=== PATIENT | male | born 1935 | race Caucasian/White ===

== ENCOUNTER 2017-01-09 16:01 | Emergency (ER) | payer MEDICARE, OTHER ==
[~2017-01-09] VITALS: Ht 177.8 cm; Wt 86.4 kg
[~2017-01-09 16:01] MED LIST: ASPIR-LOW81 MG PO; CARDI-OMEGA1000 MG PO; CARTIA XT180 MG PO; DIGOXIN0.25 MG PO; DUO-KAPS1 CAP PO; FISH OIL CONC1000 MG PO; FISH OIL CONCEN1 SG2 PO; FLEXERIL 1010 MG/TAB PO; HCTZ 25MG TAB25 MG PO; LISINOPRIL20 MG PO; MAGNESIUM PO; MILK OF MA400 MG/51 PO; MULTIPLE VITAMI1 CAP PO; MVI; NITROSTAT0.4 MG/TAB SL; NORCO 325 MG-51 TAB PO; OMNICEF 300MG300 MG PO; OSCAL 500 TAB500 MG PO; OSCAL 500MG/VI500 MG PO; PRINIVIL40 MG PO; TOPROL XL 25MG25 MG PO; TOPROL XL50 MG PO; WARFARIN SODIU7.5 MG PO; ZESTRIL 20MG TA20 MG PO; [UNRECOGNIZED DRUG - OTHER] PO
[2017-01-09 16:03] VITALS: TEMP 98.6
[2017-01-09] MEDS ORDERED: TOPROL XL 25MG25 MG PO (16:14)
[2017-01-09 16:37] LABS: BASO % 0.5 % (0.0-2.0); EOS # 0.2 (0.0-0.7); EOS % 1.9 % (0-4.0); GRAN # 5.8 (1.4-6.5); GRAN % 70.2 % (42.2-75.2); HEMATOCRIT 42.3 % (42.0-52.0); HEMOGLOBIN 14.1 g/dl (13.5-18.0); LYMPH # 1.6 (1.2-3.4); LYMPH % 19.9 % (20.0-51.0); MEAN CELL VOLUME 87 fl (80.0-100.0); MEAN CORPUSCULAR HEMOGLOBIN 29 pg (27.0-31.0); MEAN CORPUSCULAR HGB CONC 33 g/dl (33.0-37.0); MEAN PLATELET VOLUME 10.1 fl (7.4-10.4); MONO # 0.6 (0.1-0.6); MONO % 7.3 % (1.7-9.3); PLATELET COUNT 148 K/mm3 (130-400); RED BLOOD COUNT 4.85 M/mm3 (4.20-5.60); REDCELL DISTRIBUTION WIDTH-CV 13.4 % (11.5-14.5); WHITE BLOOD COUNT 8.2 K/mm3 (4.8-10.8)
[2017-01-09 16:42] LABS: PROTHROMBIN TIME 11.3 SECONDS (9.7-12.8)
[2017-01-09 16:45] LABS: PARTIAL THROMBOPLASTIN TIME 31.8 SECONDS (26.0-37.0)
[2017-01-09 16:52] LABS: ADJUSTED CALCIUM 9.4 mg/dL (8.4-10.2); ALANINE AMINOTRANSFERASE 29 U/L (21-72); ALBUMIN 4.2 gm/dL (3.5-5.0); ALKALINE PHOSPHATASE 78 U/L (50-136); ANION GAP 12 mmol/L (7-16); BILIRUBIN,TOTAL 0.9 mg/dL (0.0-1.0); BLOOD UREA NITROGEN 14 mg/dL (9-20); CALCIUM 9.6 mg/dL (8.4-10.2); CARBON DIOXIDE 20 mmol/L (22-30); CHLORIDE 105 mmol/L (98-107); CREATININE, serum 0.92 mg/dL (0.66-1.25); GLUCOSE 99 mg/dL (74-106); POTASSIUM 4.1 mmol/L (3.4-5.0); SODIUM 137 mmol/L (137-145); TOTAL PROTEIN 7.3 gm/dL (6.4-8.2)
[2017-01-09 17:12] LABS: TROPONIN-I < 0.012 ng/mL (0.000-0.034)
[2017-01-09 17:56] VITALS: BP 124/81; PULSE 72
[2017-01-10] MEDS ORDERED: ASPIRIN 81M81 MG/TA2 PO (22:38)
== END 2017-01-09 18:00 | disposition home or self-care (01) ==
LOC: COL.ER 16:01
PROVIDERS: Emergency Medicine
DX: I48.91 Unspecified atrial fibrillation (principal); I10 Essential (primary) hypertension; Z85.46 Personal history of malignant neoplasm of prostate; Z95.0 Presence of cardiac pacemaker

== ENCOUNTER 2017-01-10 22:10 | Emergency (ER) | payer MEDICARE, OTHER ==
[~2017-01-10] VITALS: Ht 154.9 cm; Wt 86.4 kg
[2017-01-10 22:10] VITALS: BP 130/78; PULSE 136; TEMP 98.6
[2017-01-10 22:30] LABS: BASO % 0.4 % (0.0-2.0); EOS # 0.5 (0.0-0.7); EOS % 6.3 % (0-4.0); GRAN # 4.3 (1.4-6.5); GRAN % 54.4 % (42.2-75.2); HEMATOCRIT 42.6 % (42.0-52.0); HEMOGLOBIN 14.3 g/dl (13.5-18.0); LYMPH # 2.5 (1.2-3.4); LYMPH % 31.3 % (20.0-51.0); MEAN CELL VOLUME 88 fl (80.0-100.0); MEAN CORPUSCULAR HEMOGLOBIN 30 pg (27.0-31.0); MEAN CORPUSCULAR HGB CONC 34 g/dl (33.0-37.0); MEAN PLATELET VOLUME 10.1 fl (7.4-10.4); MONO # 0.6 (0.1-0.6); MONO % 7.5 % (1.7-9.3); PLATELET COUNT 160 K/mm3 (130-400); RED BLOOD COUNT 4.82 M/mm3 (4.20-5.60); REDCELL DISTRIBUTION WIDTH-CV 13.5 % (11.5-14.5)
[2017-01-10] MEDS ORDERED: ASPIRIN 81M81 MG/TA2 PO (22:38)
[2017-01-10 22:53] LABS: ADJUSTED CALCIUM 9.2 mg/dL (8.4-10.2); ALANINE AMINOTRANSFERASE 27 U/L (21-72); ALBUMIN 4.2 gm/dL (3.5-5.0); ALKALINE PHOSPHATASE 79 U/L (50-136); ANION GAP 11 mmol/L (7-16); BILIRUBIN,TOTAL 0.6 mg/dL (0.0-1.0); BLOOD UREA NITROGEN 18 mg/dL (9-20); CALCIUM 9.4 mg/dL (8.4-10.2); CARBON DIOXIDE 23 mmol/L (22-30); CHLORIDE 103 mmol/L (98-107); CREATININE, serum 1.05 mg/dL (0.66-1.25); GLUCOSE 129 mg/dL (74-106); MAGNESIUM 1.9 mg/dL (1.6-2.3); PHOSPHOROUS 3.3 mg/dL (2.5-4.5); POTASSIUM 4.1 mmol/L (3.4-5.0); SODIUM 137 mmol/L (137-145); TOTAL PROTEIN 7.3 gm/dL (6.4-8.2)
[2017-01-10 23:22] LABS: TROPONIN-I < 0.012 ng/mL (0.000-0.034)
[2017-01-11] MEDS ORDERED: CARDIZEM 30MG T30 MG PO (00:32)
[2017-01-12] MEDS ORDERED: CARDIZEM 30MG T30 MG PO (14:06)
[2017-01-12] MEDS ORDERED: PACERONE400 MG PO (16:50)
== END 2017-01-11 01:16 | disposition home or self-care (01) ==
LOC: COL.ER 22:10
PROVIDERS: Emergency Medicine
DX: I48.92 Unspecified atrial flutter (principal); I48.91 Unspecified atrial fibrillation; I10 Essential (primary) hypertension; Z85.46 Personal history of malignant neoplasm of prostate; Z86.79 Personal history of other diseases of the circulatory system; Z95.0 Presence of cardiac pacemaker; Z79.82 Long term (current) use of aspirin

== ENCOUNTER 2017-01-12 13:06 | Day surgery (SDC) | payer MEDICARE, OTHER ==
[~2017-01-12] VITALS: Ht 180.3 cm; Wt 88.6 kg
[2017-01-12] VITALS (8 sets, daily range): BP systolic 122–134; BP diastolic 76–102; PULSE 60–137; TEMP 98.7
[~2017-01-12 13:06] MED LIST changes: +ASPIRIN 81M81 MG/TA2 PO; +CARDIZEM 30MG T30 MG PO
[2017-01-12 13:50] LABS: INR 1.1 (0.8-3.0); PROTHROMBIN TIME 12.1 SECONDS (9.7-12.8)
[2017-01-12 13:51] LABS: POTASSIUM 4.1 mmol/L (3.4-5.0)
[2017-01-12] MEDS ORDERED: CARDIZEM 30MG T30 MG PO (14:06)
[2017-01-12 14:26] LABS: THYROID STIMULATING HORMONE 1.43 uIU/mL (0.465-4.680)
[2017-01-12] MEDS ORDERED: PACERONE400 MG PO (16:50)
== END 2017-01-12 17:43 | disposition home or self-care (01) ==
LOC: COL.CAR 13:06
PROVIDERS: Internal Medicine Interventional Cardiology
DX: I48.92 Unspecified atrial flutter (principal); I48.0 Paroxysmal atrial fibrillation; I10 Essential (primary) hypertension; I73.9 Peripheral vascular disease, unspecified; Z95.0 Presence of cardiac pacemaker; Z85.46 Personal history of malignant neoplasm of prostate; Z87.19 Personal history of other diseases of the digestive system; Z87.891 Personal history of nicotine dependence; Z86.79 Personal history of other diseases of the circulatory system
CPT/HCPCS: J0282; J2250; J3010; J7030

== ENCOUNTER 2019-02-01 09:54 | Emergency (ER) | payer MEDICARE, OTHER ==
[~2019-02-01] VITALS: Ht 180.3 cm; Wt 87.7 kg
[~2019-02-01 09:54] MED LIST changes: +BETAPACE 80MG80 MG PO; +CALCIUM 600MG+D1 TAB PO; +CEROVITE SENIOR1 TA1 PO; +PACERONE400 MG PO; +PRINIVIL20 MG PO
[2019-02-01 10:03] VITALS: BP 137/60; TEMP 97.7
[2019-02-01 11:20] LABS: BASO % 0.5 % (0.0-2.0); EOS # 0.4 (0.0-0.7); EOS % 5.2 % (0-4.0); GRAN # 4.9 (1.4-6.5); GRAN % 61.3 % (42.2-75.2); HEMATOCRIT 42.4 % (42.0-52.0); HEMOGLOBIN 14.3 g/dl (13.5-18.0); LYMPH # 1.9 (1.2-3.4); MEAN CELL VOLUME 88 fl (80.0-100.0); MEAN CORPUSCULAR HEMOGLOBIN 30 pg (27.0-31.0); MEAN CORPUSCULAR HGB CONC 34 g/dl (33.0-37.0); MEAN PLATELET VOLUME 10.3 fl (7.4-10.4); MONO # 0.7 (0.1-0.6); MONO % 8.6 % (1.7-9.3); PLATELET COUNT 147 K/mm3 (130-400); RED BLOOD COUNT 4.84 M/mm3 (4.20-5.60); REDCELL DISTRIBUTION WIDTH-CV 13.5 % (11.5-14.5)
[2019-02-01 11:22] LABS: INR 1.1 (0.8-3.0); PROTHROMBIN TIME 12.9 SECONDS (9.7-12.8)
[2019-02-01 11:26] LABS: ALANINE AMINOTRANSFERASE 18 U/L (21-72); ALBUMIN 4.2 gm/dL (3.5-5.0); ALKALINE PHOSPHATASE 70 U/L (50-136); ANION GAP 10 mmol/L (7-16); AST,SGOT 23 U/L (15-37); BILIRUBIN,TOTAL 0.9 mg/dL (0.0-1.0); BLOOD UREA NITROGEN 14 mg/dL (9-20); CALCIUM 9.3 mg/dL (8.4-10.2); CARBON DIOXIDE 24 mmol/L (22-30); CHLORIDE 105 mmol/L (98-107); CREATININE, serum 0.83 (0.66-1.25); GLUCOSE 93 mg/dL (74-106); SODIUM 139 mmol/L (137-145); TOTAL PROTEIN 7.3 gm/dL (6.4-8.2)
[2019-02-01 11:39] LABS: TROPONIN-I < 0.012 ng/mL (0.000-0.035)
[2019-02-01 12:16] LABS: COLLECTION METHOD CLEAN CATCH
[2019-02-01 12:22] LABS: PH 6 (5-8); SQUAMOUS EPITHELIAL 0-2 /hpf; URINE APPEARANCE Clear; URINE BACTERIA None Seen /hpf; URINE BILIRUBIN Negative (NEGATIVE); URINE BLOOD Negative (NEGATIVE); URINE COLOR Yellow; URINE GLUCOSE Negative (NEGATIVE); URINE KETONE Trace (NEGATIVE); URINE LEUKOCYTE ESTERASE Negative (NEGATIVE); URINE NITRATE Negative (NEGATIVE); URINE PROTEIN(semi-quant) Negative (NEGATIVE); URINE RBC 0-2 /hpf; URINE UROBILINOGEN Negative (NEGATIVE)
[2019-02-01] MEDS ORDERED: ANTIVERT 25MG25 MG PO (13:41)
[2019-02-01 14:09] VITALS: PULSE 67
== END 2019-02-01 14:09 | disposition home or self-care (01) ==
LOC: COL.ER 09:54
PROVIDERS: Emergency Medicine
DX: R42 Dizziness and giddiness (principal); I48.91 Unspecified atrial fibrillation; I10 Essential (primary) hypertension; Z86.69 Personal history of other diseases of the nervous system and sense organs; Z98.890 Other specified postprocedural states; Z79.82 Long term (current) use of aspirin
CPT/HCPCS: J1200; J2060; J2405; J7030

== ENCOUNTER 2020-12-08 16:12 | Inpatient (IN) | payer MEDICARE, OTHER ==
[~2020-12-08] VITALS: Ht 177.8 cm; Wt 88.6 kg
[~2020-12-08 16:12] MED LIST changes: +ANTIVERT 25MG25 MG PO; +TIKOSYN0.5 MG PO
[2020-12-08 16:34] LABS: BASO % 0.4 % (0.0-2.0); EOS # 0.4 (0.0-0.7); EOS % 3.7 % (0-4.0); GRAN # 6.8 (1.4-6.5); GRAN % 68.8 % (42.2-75.2); HEMATOCRIT 43.4 % (42.0-52.0); LYMPH % 20.2 % (20.0-51.0); MEAN CELL VOLUME 88 fl (80.0-100.0); MEAN CORPUSCULAR HEMOGLOBIN 29 pg (27.0-31.0); MEAN CORPUSCULAR HGB CONC 32 g/dl (33.0-37.0); MEAN PLATELET VOLUME 9.5 fl (7.4-10.4); MONO # 0.7 (0.1-0.6); MONO % 6.7 % (1.7-9.3); PLATELET COUNT 180 K/mm3 (130-400); RED BLOOD COUNT 4.92 M/mm3 (4.20-5.60); REDCELL DISTRIBUTION WIDTH-CV 13.7 % (11.5-14.5)
[2020-12-08 16:47] LABS: ALBUMIN 4.4 gm/dL (3.5-5.0); BILIRUBIN,TOTAL 0.4 mg/dL (0.0-1.0); C-REACTIVE PROTEIN 0.6 mg/dL (0.0-0.9); CALCIUM 9.7 mg/dL (8.4-10.2); CREATININE, serum 1.02 (0.66-1.25); POTASSIUM 4.3 mmol/L (3.4-5.0); TOTAL PROTEIN 7.7 gm/dL (6.4-8.2)
--- NOTE | 2020-12-08 23:07 | NUR ---
PT ARRIVED ON UNIT AT 2230. PT ORIENTED TO ROOM. PT COMPLAINS OF CONSTANT PAIN IN HIS ABDOMINAL AREA. PT RESTING IN BED BUT CANT GET COMFORTABLE. BOWEL SOUNDS HYPOACTIVE IN ALL FOUR QUADRANTS. LR RUNNING THROUGH IV. CALL LIGHT WITHIN REACH. WILL CONTINUE TO MONITOR.
[2020-12-08 23:57] VITALS: BP 143/68; PULSE 80; TEMP 98.7
--- NOTE | 2020-12-09 00:13 | NUR ---
ED NURSE REPORTED SEVERAL ATEMPTS TO PLACE NG TUBE WERE UNSUCESSFUL. WILL MONITOR PT AND CONTACT PHYSICIAN IF NEEDED.
[2020-12-09 03:37] VITALS: BP 152/55; PULSE 75; TEMP 98.2
--- NOTE | 2020-12-09 06:04 | NUR ---
WALKED PAST PT ROOM AND HEARD HIM VOMITING. WALKED IN AND FOUND EMESIS IN THE BEDSIDE TUB. THE BOTTOM WAS FULL WITH WATERY BROWN EMESIS. ZOFRAN WAS GIVEN PER PROTOCOL. HE HAS STOPPED VOMITING. WILL CONTINUE TO MONITOR.
--- NOTE | 2020-12-09 07:00 | NUR ---
Report with BEE Rivera and BEE Villegas. Pt resting in bed with eyes closed, resp even and unlabored. IVF's infusing to left forearm site without s/s of complications. Call light in reach.
[2020-12-09 07:43] VITALS: BP 162/49; PULSE 73; TEMP 99.5
[2020-12-09 08:22] LABS: HEMATOCRIT 44.4 % (42.0-52.0); HEMOGLOBIN 14.6 g/dl (13.5-18.0); MEAN CELL VOLUME 88 fl (80.0-100.0); MEAN CORPUSCULAR HEMOGLOBIN 29 pg (27.0-31.0); MEAN CORPUSCULAR HGB CONC 33 g/dl (33.0-37.0); MEAN PLATELET VOLUME 10.2 fl (7.4-10.4); PLATELET COUNT 183 K/mm3 (130-400); RED BLOOD COUNT 5.07 M/mm3 (4.20-5.60); REDCELL DISTRIBUTION WIDTH-CV 13.8 % (11.5-14.5)
[2020-12-09 08:29] LABS: ALBUMIN 3.9 gm/dL (3.5-5.0); BILIRUBIN,TOTAL 0.7 mg/dL (0.0-1.0); CALCIUM 9.2 mg/dL (8.4-10.2); CREATININE, serum 0.94 (0.66-1.25); POTASSIUM 4.4 mmol/L (3.4-5.0); TOTAL PROTEIN 6.9 gm/dL (6.4-8.2)
[2020-12-09 09:12] LABS: BAND 1 % (0-10); LYMPHOCYTE 5 % (20.0-51.0); NEUTROPHILS 91 % (42.0-75.2); PLATELET ESTIMATE NORMAL (NORMAL)
[2020-12-09 09:55] LABS: COLLECTION METHOD CLEAN CATCH
--- NOTE | 2020-12-09 10:07 | NUR ---
Initial visit; Patient and his thanked Cadd Operator for looking in on him and offering God's blessings.
[2020-12-09 10:34] LABS: MUCOUS Present /lpf; PH 7 (5-8); SQUAMOUS EPITHELIAL None Seen /hpf; URINE APPEARANCE Clear; URINE BACTERIA None Seen /hpf; URINE BILIRUBIN Negative (NEGATIVE); URINE BLOOD Negative (NEGATIVE); URINE COLOR Yellow; URINE GLUCOSE Negative (NEGATIVE); URINE KETONE 1+ (NEGATIVE); URINE LEUKOCYTE ESTERASE Negative (NEGATIVE); URINE NITRATE Negative (NEGATIVE); URINE PROTEIN(semi-quant) Negative (NEGATIVE); URINE RBC 0-2 /hpf; URINE UROBILINOGEN Negative (NEGATIVE)
[2020-12-09 11:40] VITALS: BP 131/51; PULSE 76; TEMP 98.6
--- NOTE | 2020-12-09 14:59 | NUR ---
SW met with the patient to discuss discharge plan. The patient lives in [place] with his , Carmelita (ph#[phone]). 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 The patient's PCP is Dr. Juanito Hwang and he receives his medications from [facility]. He reports no difficulties obtaining his meds. The patient's DPOA-HC is in EMR and it designates his . The patient plans to return home with his upon discharge. No additional needs at this time. *Discharge plan: home with *
[2020-12-09 15:58] VITALS: BP 127/54; PULSE 74; TEMP 98.7
--- NOTE | 2020-12-09 18:50 | NUR ---
Provider notified of pt's recent episode of emesis and decreased urine output - pt has not voided since this morning with IVF's infusing at 125 ml/hr. Orders received. IV pump set to run 500 ml bolus of current LR over 2 hours. When in room, pt does void 750 ml urine without difficulty. Report to BEE Larry. No further needs reported. Call light in reach.
--- NOTE | 2020-12-09 19:22 | NUR ---
Initial shift assessment done- states abd pain is only slight 'sore' denies need for pain meds- denies nausea. Abd soft, hypoactive bowel sounds, no flatus-- NPO with ice chips. Will take a walk tonight with assist.
[2020-12-09 19:29] VITALS: BP 146/66; PULSE 76; TEMP 97.6
[2020-12-09 23:42] VITALS: BP 149/62; PULSE 86; TEMP 98.6
[2020-12-10 03:58] VITALS: BP 139/64; PULSE 82; TEMP 97.9
--- NOTE | 2020-12-10 05:01 | NUR ---
Has been sleeping well since Morphine was given earlier- one emesis tonight of about 100cc,, denies need for Zofran at this time.VSS.
[2020-12-10 07:10] LABS: BASO % 0.2 % (0.0-2.0); GRAN # 7.3 (1.4-6.5); GRAN % 78.6 % (42.2-75.2); HEMATOCRIT 42.5 % (42.0-52.0); HEMOGLOBIN 13.9 g/dl (13.5-18.0); LYMPH # 1.2 (1.2-3.4); LYMPH % 12.7 % (20.0-51.0); MEAN CELL VOLUME 88 fl (80.0-100.0); MEAN CORPUSCULAR HEMOGLOBIN 29 pg (27.0-31.0); MEAN CORPUSCULAR HGB CONC 33 g/dl (33.0-37.0); MEAN PLATELET VOLUME 10.2 fl (7.4-10.4); MONO # 0.8 (0.1-0.6); MONO % 8.2 % (1.7-9.3); PLATELET COUNT 173 K/mm3 (130-400); RED BLOOD COUNT 4.83 M/mm3 (4.20-5.60); REDCELL DISTRIBUTION WIDTH-CV 13.8 % (11.5-14.5)
[2020-12-10 07:22] LABS: ALBUMIN 3.5 gm/dL (3.5-5.0); BILIRUBIN,TOTAL 0.6 mg/dL (0.0-1.0); CALCIUM 8.6 mg/dL (8.4-10.2); CREATININE, serum 0.9 (0.66-1.25); POTASSIUM 4.2 mmol/L (3.4-5.0); TOTAL PROTEIN 6.2 gm/dL (6.4-8.2)
[2020-12-10 08:15] VITALS: BP 166/84; PULSE 111; TEMP 99.1
--- NOTE | 2020-12-10 10:41 | NUR ---
Assessment completed, alert/oriented, vital signs stable/ low grade temps, abdomen is distended and BS are hypoactive, patient reports he is still nauseated and denies passing and flatus, heart RRR/ he has taken his tikoysn and will monitor that he is able to keep his meds down, has been by and and is likely planning on taking patient to OR later today as patient is not showing any improvement in his condition, patient is agreeable and understands plan of care
--- NOTE | 2020-12-10 10:46 | NUR ---
Follow-up visit; Patient and his thanked Computational Biologist for continuing to look in on him. Patient continues to be in considerable pain. Computational Biologist attempts to comfort and reassure him of God's presence.
[2020-12-10 11:57] VITALS: BP 143/87; PULSE 97; TEMP 99.4
[2020-12-10 16:30] LABS: HEMATOCRIT 43.1 % (42.0-52.0); HEMOGLOBIN 14.7 g/dl (13.5-18.0); MEAN CELL VOLUME 86 fl (80.0-100.0); MEAN CORPUSCULAR HEMOGLOBIN 29 pg (27.0-31.0); MEAN CORPUSCULAR HGB CONC 34 g/dl (33.0-37.0); MEAN PLATELET VOLUME 9.7 fl (7.4-10.4); PLATELET COUNT 156 K/mm3 (130-400); RED BLOOD COUNT 5.02 M/mm3 (4.20-5.60); REDCELL DISTRIBUTION WIDTH-CV 13.6 % (11.5-14.5)
[2020-12-10 16:36] LABS: ALBUMIN 3.6 gm/dL (3.5-5.0); BILIRUBIN,TOTAL 0.8 mg/dL (0.0-1.0); CALCIUM 8.7 mg/dL (8.4-10.2); CREATININE, serum 0.82 (0.66-1.25); TOTAL PROTEIN 6.5 gm/dL (6.4-8.2)
--- NOTE | 2020-12-10 19:21 | NUR ---
PT OFF THE UNIT AT THIS TIME. WAS TOLD IN REPORT THAT PT HAD GONE DOWN TO OR FOR PROCEDURE AT 1500 THIS EVENING AND HASN'T RETURNED YET.
[2020-12-10 20:40] VITALS: BP 141/63; PULSE 75; TEMP 98.8
--- NOTE | 2020-12-10 21:56 | NUR ---
PT RESTING COMFORTABLY IN BED. PT RETURNED FROM PROCEDURE AND I AWAKE AND ALERT. EVENING MEDICATIONS GIVEN. LR RUNNING THROUGH IV AT 125ML/HR. PT REPORT NO PAIN AT THIS TIME OTHER THAN A HEADACHE. CALLED DR. GERARDO AND REQUESTED ORDERS FOR TYLENOL TO TREAT THIS. 3 INCISIONS TO STOMACH HAVE NO REDNESS OR SWELLING. CALL LIGHT WITHIN REACH. WILL CONTINUE TO MONITOR.
[2020-12-11] VITALS (7 sets, daily range): BP systolic 140–147; BP diastolic 64–85; PULSE 75–96; TEMP 98.5–99.1
[2020-12-11 07:03] LABS: BASO % 0.1 % (0.0-2.0); GRAN # 7.6 (1.4-6.5); GRAN % 82.5 % (42.2-75.2); HEMATOCRIT 40.5 % (42.0-52.0); HEMOGLOBIN 13.3 g/dl (13.5-18.0); LYMPH # 0.8 (1.2-3.4); LYMPH % 8.7 % (20.0-51.0); MEAN CELL VOLUME 88 fl (80.0-100.0); MEAN CORPUSCULAR HEMOGLOBIN 29 pg (27.0-31.0); MEAN CORPUSCULAR HGB CONC 33 g/dl (33.0-37.0); MEAN PLATELET VOLUME 10.7 fl (7.4-10.4); MONO # 0.8 (0.1-0.6); MONO % 8.4 % (1.7-9.3); PLATELET COUNT 158 K/mm3 (130-400); RED BLOOD COUNT 4.62 M/mm3 (4.20-5.60); REDCELL DISTRIBUTION WIDTH-CV 13.7 % (11.5-14.5)
[2020-12-11 07:17] LABS: ALBUMIN 3.1 gm/dL (3.5-5.0); BILIRUBIN,TOTAL 0.5 mg/dL (0.0-1.0); CALCIUM 8.3 mg/dL (8.4-10.2); CREATININE, serum 0.94 (0.66-1.25)
--- NOTE | 2020-12-11 12:35 | NUR ---
Follow-up visit; Patient thanked It Software Engineer for continuing to look in on him and keeping him in her prayers. Lambert is doing much better following a surgical procedure that corrected his health issues. It Software Engineer offered God's blessings.
--- NOTE | 2020-12-11 21:59 | NUR ---
DR. REDD NOTIFIED THAT PT HAS INCREASED SWELLING IN LEFT ARM AND TOLERATING ORAL INTAKE. NEW ORDERS TO DISCONTINUE FLUIDS.
--- NOTE | 2020-12-11 22:16 | NUR ---
PT ALERT AND ORIENTED. PT LUNG SOUNDS CLEAR ON ASCULTATION. PT BOWEL SOUNDS AUDIBLE IN ALL FOUR QUADRANTS. NO PAIN NOTED WITH PALPATION. TOLERATING ORAL INTAKE WELL. PT COMPLAINS OF "SINUS HEADACHE" RATED 4/10 REQUESTED TYLENOL PRN. TYLENOL GIVEN PER ORDERS. PT REPORTS NOTING SWELLING IN LOWER LEGS, NON-PITTING AT THIS TIME. PT LEFT ARM SWELLING AND PUFFY APPEARANCE. PROVIDER NOTIFIED OF ORAL INTAKE AND LR DISCONTINUED AT THIS TIME. PT'S TWO LAP SITES ON ABDOMEN ARE WELL APPROXIMATED WITH SLIGHT ERYTHEMA NOTED AROUND EDGES.
[2020-12-12 03:38] VITALS: BP 146/71; PULSE 75; TEMP 98.5
[2020-12-12 08:29] VITALS: BP 114/69; PULSE 82; TEMP 98; TEMP 98.5
--- NOTE | 2020-12-12 08:32 | NUR ---
Assessment completed, alert/oriented, vital signs stable, patient denies pain and reports "feeling much better", denies any further N/V, abd is soft and BS+ throughout he had 2 large bowel movements yesterday, he tolerated CL diet and has been advanced to low fiber diet and so far tolerating without any difficult, heart RRR/ paced on tele, lungS CTA/ no resp.difficulty, will continue to monitor
--- NOTE | 2020-12-12 10:59 | NUR ---
SW's met with the patient and his , Carmelita, to follow up. The patient reports that he is not feeling so well today. He confirms that he still plans on returning home with his upon discharge. Carmelita states that she just wants to the patient to start feeling well. SW asked the patient's RN for PT to be ordered. SW to follow as needed. *Discharge plan: home with .
[2020-12-12 12:47] VITALS: BP 134/76; PULSE 74; TEMP 98.1
[2020-12-12 16:28] VITALS: BP 138/75; PULSE 75; TEMP 98
[2020-12-12 20:19] VITALS: BP 150/77; PULSE 75; TEMP 98.4
--- NOTE | 2020-12-12 20:30 | NUR ---
Initial shift assessment done- denies pain at this time,denies nausea-- no appetite, Tele on -paced,, NPO after MN for ?cardioversion in AM, and soft-active bowel sounds, passing some gas.
[2020-12-13 00:17] VITALS: BP 134/75; PULSE 76; TEMP 98.5
[2020-12-13 04:18] VITALS: BP 123/73; PULSE 74; TEMP 98.3
--- NOTE | 2020-12-13 06:17 | NUR ---
Did sleep for a few hours- Was up x1 for a small amount liquid stool,, VSS, no requests. NPO for ? cardioversion
[2020-12-13 08:18] VITALS: BP 125/72; PULSE 73; TEMP 98.8
--- NOTE | 2020-12-13 09:15 | NUR ---
Shift assessment complete. Pt resting in bed, A&Ox4. Heart rhythm irregular, rate controlled. Lungs CTA. Denies chest pain or SOA, does report some dizziness w/movement. Lap sites x3 to abdomen, CDI. Pt denies abdominal pain/tenderness. Scheduled for cardioversion this afternoon, NPO until then. Continuing to monitor.
[2020-12-13 13:03] VITALS: BP 123/38; PULSE 79; TEMP 98.9
[2020-12-13] MEDS ORDERED: FLONASE NASAL S16 GM NS (13:46)
--- NOTE | 2020-12-13 14:46 | NUR ---
Discharge instructions discussed w/pt and and all questions answered. contacted about starting pt on diuretic, lasix ordered. IV to right wrist removed, tip intact. Pt and escorted out via wheelchairs w/all belongings.
[2020-12-13] MEDS ORDERED: LASIX 20MG TABL20 MG PO (14:57)
== END 2020-12-13 15:15 | disposition home or self-care (01) | DRG 337 ==
LOC: COL.ER 16:12 → MEDICAL 17:58
PROVIDERS: Family Medicine; ADMIT Surgery
PROC: 5A2204Z Restoration of Cardiac Rhythm, Single (ICD-10-PCS; 2020-12-10)
PROC: 0DN84ZZ Release Small Intestine, Percutaneous Endoscopic Approach (ICD-10-PCS; principal; 2020-12-10 15:30)
DX: K56.51 Intestinal adhesions [bands], with partial obstruction (principal); Z20.822 Contact with and (suspected) exposure to COVID-19; I48.91 Unspecified atrial fibrillation; R09.81 Nasal congestion
CPT/HCPCS: A4314; A9284; J0330; J0690; J1100; J1200; J1650; J1885; J1940; J2270; J2370; J2405; J2704; J3010; J7120; Q9967

== ENCOUNTER 2022-01-16 10:32 | Day surgery (SDC) | payer MEDICARE, OTHER ==
[~2022-01-16] VITALS: Ht 180.3 cm; Wt 87.4 kg
[~2022-01-16 10:32] MED LIST changes: +FLONASE NASAL S16 GM NS; +LASIX 20MG TABL20 MG PO
[2022-01-16 11:41] VITALS: BP 142/72; PULSE 63; TEMP 97.8
[2022-01-16 12:50] VITALS: BP 123/69; PULSE 79; TEMP 98.7
--- NOTE | 2022-01-16 12:50 | NUR ---
Pt returned to bay 7 via cart. Ambulated to recliner in bay. Pts niece present in room. VSS-see flowsheet. Given warm blanket, muffin and juice. Call light in reach.
[2022-01-16 13:05] VITALS: BP 116/72; PULSE 79
--- NOTE | 2022-01-16 13:17 | NUR ---
VS remain stable. Tolerated oral intake. Denies n/v or other complaints. IV removed and pressure dressing applied. Pt dressing and waiting to see Dr post procedure.
--- NOTE | 2022-01-16 13:57 | NUR ---
Discharge teaching completed, verbalized understanding. Pt taken via wheelchair to private car for dc home with pts niece driving.
== END 2022-01-16 13:57 | disposition home or self-care (01) ==
LOC: SDCO 10:32
DX: Z12.11 Encounter for screening for malignant neoplasm of colon (principal); K57.30 Diverticulosis of large intestine without perforation or abscess without bleeding; K62.7 Radiation proctitis; Z86.010 Personal history of colon polyps
CPT/HCPCS: J2704; J7030

== ENCOUNTER 2023-07-02 10:12 | Emergency (ER) | payer MEDICARE ==
[~2023-07-02] VITALS: Ht 177.8 cm; Wt 79.5 kg
[2023-07-02 10:55] LABS: BASO % 0.4 % (0.0-2.0); EOS # 0.1 K/mm3 (0.0-0.7); EOS % 0.6 % (0.0-4.0); GRAN # 5.9 K/mm3 (1.4-6.5); GRAN % 69.3 % (42.2-75.2); HEMATOCRIT 43.5 % (42.0-52.0); HEMOGLOBIN 15.1 g/dl (13.5-18.0); LYMPH # 1.5 K/mm3 (1.2-3.4); LYMPH % 17.6 % (20.0-51.0); MEAN CELL VOLUME 87 fl (80.0-100.0); MEAN CORPUSCULAR HEMOGLOBIN 30 pg (27-31); MEAN CORPUSCULAR HGB CONC 35 g/dl (33.0-37.0); MEAN PLATELET VOLUME 10.1 fl (7.4-10.4); MONO % 11.6 % (1.7-9.3); PLATELET COUNT 144 K/mm3 (130-400); RED BLOOD COUNT 5.03 M/mm3 (4.20-5.60); REDCELL DISTRIBUTION WIDTH-CV 13.5 % (11.5-14.5)
[2023-07-02] MEDS ORDERED: LR 1,000 ML IV ONE (11:00)
[2023-07-02] MEDS ORDERED: Morphine 4 MG/ML VIAL IV ONE (11:00)
[2023-07-02] MEDS ORDERED: Ondansetron 4 MG/2 ML VIAL IV ONE (11:00)
[2023-07-02 11:08] LABS: ALANINE AMINOTRANSFERASE 13 U/L (0-55); ALBUMIN 3.6 gm/dL (3.4-4.8); ALKALINE PHOSPHATASE 52 U/L (40-150); ANION GAP 13 mmol/L (7-16); AST,SGOT 24 U/L (5-34); BILIRUBIN,TOTAL 0.6 mg/dL (0.2-1.2); BLOOD UREA NITROGEN 34 mg/dL (8-26); CALCIUM 9.3 mg/dL (8.4-10.2); CARBON DIOXIDE 18 mmol/L (23-31); CHLORIDE 104 mmol/L (98-107); CREATININE, serum 1.27 mg/dL (0.72-1.25); GLUCOSE 109 mg/dL (70-99); LIPASE 32 U/L (8-78); POTASSIUM 3.6 mmol/L (3.5-4.5); SODIUM 135 mmol/L (136-145); TOTAL PROTEIN 6.6 gm/dL (6.2-8.1)
[2023-07-02 11:15] LABS: TROPONIN-I < 0.010 ng/mL (0.00-0.033)
[2023-07-02] MEDS ORDERED: NS 100 ML IV SCH (11:55)
[2023-07-02] MEDS ORDERED: Iohexol 300 - 100 ML VIAL IV ONE (11:55)
[2023-07-02 13:15] VITALS: TEMP 97.1
[2023-07-02] MEDS ORDERED: BENTYL 20MG20 MG/TAB PO (13:23)
[2023-07-02] MEDS ORDERED: ZOFRAN ODT4 MG PO (13:23)
[2023-07-02 13:35] VITALS: BP 139/80; PULSE 85
== END 2023-07-02 13:35 | disposition home or self-care (01) ==
LOC: COL.ER 10:12
PROVIDERS: Emergency Medicine
DX: K52.9 Noninfective gastroenteritis and colitis, unspecified (principal); N28.9 Disorder of kidney and ureter, unspecified; Z90.49 Acquired absence of other specified parts of digestive tract
CPT/HCPCS: J2270; J2405; J7120; Q9967

== ENCOUNTER 2023-12-27 09:24 | Day surgery (SDC) | payer MEDICARE ==
[2023-12-27] VITALS (11 sets, daily range): BP systolic 131–161; BP diastolic 55–89; PULSE 48–80; TEMP 97.5–98.8
[~2023-12-27] VITALS: Ht 177.8 cm; Wt 85.7 kg
[~2023-12-27 09:24] MED LIST changes: +BENTYL 20MG20 MG/TAB PO; +LR 1,000 ML IV SCH; +VISION FORMULA1 EAC1 PO; +ZOFRAN ODT4 MG PO
[2023-12-27] MEDS ORDERED: fentaNYL 50 MCG/ML 2 ML VIAL ONE ×2 (13:02→15:05)
[2023-12-27] MEDS ORDERED: Midazolam 2 MG/2 ML VIAL ONE (13:02)
[2023-12-27] MEDS ORDERED: Lidocaine PF 2% (20 MG/ML) 5 ML VIAL ONE (13:02)
[2023-12-27] MEDS ORDERED: Ondansetron 4 MG/2 ML VIAL ONE (13:03)
[2023-12-27] MEDS ORDERED: dexAMETHasone 10 MG/ML VIAL ONE (13:03)
[2023-12-27] MEDS ORDERED: NS 10 ML IV ONE (13:03)
[2023-12-27] MEDS ORDERED: Ondansetron 4 MG/2 ML VIAL IV PRN ×2 (14:15→15:00)
[2023-12-27] MEDS ORDERED: NORCO 325 MG-51 TAB PO (14:15)
[2023-12-27] MEDS ORDERED: Lidocaine 1% w EPI (1:100,000) 10 ML Multi-Dose VIAL IJ ONE (14:37)
[2023-12-27] MEDS ORDERED: HYDROmorphone 1 MG/1 ML SYRINGE [PACU/SDC ONLY] IV PRN (15:00)
[2023-12-27] MEDS ORDERED: Meperidine 50 MG/ML 1 ML VIAL IV PRN (15:00)
[2023-12-27] MEDS ORDERED: Morphine 2 MG/1 ML VIAL [PACU/SDC ONLY] IV PRN (15:00)
--- NOTE | 2023-12-27 16:23 | NUR ---
PT TO ROOM 325 PER BED WITH REPORT FROM JAZIEL STATE ARCHIVIST @1610. PT IS A/O X4, LUNGS CTA, BOWEL SOUNDS PRESENT. HEART SOUNDS PACED. DRESSING TO LEFT CHEST CDI WITH LEXIE DRAIN TO COMPRESSION CURRENTLY NO DRAINAGE NOTED IN DRAIN. SCD PLACED BILATERALLY. IV TO RFA. PT SON AT BEDSIDE.
[2023-12-27] MEDS ORDERED: Lisinopril 20 MG TAB PO SCH (21:00)
[2023-12-27] MEDS ORDERED: Dofetilide 250 MCG CAP PO SCH (21:00)
--- NOTE | 2023-12-27 22:45 | NUR ---
SHIFT ASSESSMENT COMPLETE. VSS. PATIENT RESTING IN BED. ALL NIGHT MEDS GIVEN ORDERED. PATIENT STATES PAIN 3/10 NO PAIN MEDS REQUESTED AT THIS TIME. CALL LIGHT IN REACH
[2023-12-28 00:24] VITALS: BP_SYST 131
[2023-12-28 03:49] VITALS: BP 133/72; BP 133/79; PULSE 51; PULSE 79; TEMP 98.1
[2023-12-28 04:00] VITALS: BP_SYST 133
[2023-12-28 07:14] VITALS: BP 130/70; PULSE 75; TEMP 97.9
[2023-12-28] MEDS ORDERED: Dofetilide 250 MCG CAP PO SCH (07:45)
--- NOTE | 2023-12-28 08:43 | NUR ---
pt a&ox4 resting in bed just finished with breakfast. vss and tele in place. pt denies pain. left breast incision is cdi and open to air. minimal bloody output to mansi drain. pt denies needs at this time. call light in reach.
--- NOTE | 2023-12-28 08:55 | NUR ---
SW met with patient to complete initial assessment for discharge planning. Patient alert and oriented x 4, upright in bed reading. Patient verified that he lives alone in [place], is independent with all activities and uses only a cane periodically, shower chair seldom and grab bars. Patient sees Dr. Hwang as his PCP and uses [facility]. Patient lists his daughter Jonny Ortega as his DPOA since the of his . Patient lists his son Jensen ([phone]) as contact and states Jensen will drive him home Discharge plan: Home
[2023-12-28] MEDS ORDERED: Furosemide 20 MG TAB PO SCH (09:00)
[2023-12-28] MEDS ORDERED: Eye Formula MVI w/Minerals TABLET PO SCH (09:00)
[2023-12-28 09:12] VITALS: BP_SYST 130
[2023-12-28 11:22] VITALS: BP 123/66; PULSE 75; TEMP 98.6
--- NOTE | 2023-12-28 12:42 | NUR ---
discharge instructions given to pt, all questions answered. instructed pt on how to take care of mansi drain at home. INT discontinued.
--- NOTE | 2023-12-28 12:45 | NUR ---
D: Assistant Spa Manager stopped by room on rounds. A: Pt was resting and content. Pt has no needs right now. P: Assistant Spa Manager informed pt that if he needed anything from the bankruptcy legal assistant area to let his nurse know. Assistant Spa Manager will follow up as needed.
--- NOTE | 2023-12-28 13:01 | NUR ---
pt escorted by wheelchair to personal vehicle
== END 2023-12-28 13:02 | disposition home or self-care (01) ==
LOC: SDCO 09:24 → SURG 16:10 → SDCO 12-28 13:02
DX: C50.222 Malignant neoplasm of upper-inner quadrant of left male breast (principal)
CPT/HCPCS: OP; A9520-JZ; J0665; J0690; J1100; J1170; J2250; J2405; J2704; J2795; J3010; J7120